=== PATIENT | female | born 2000 | race Caucasian/White ===

== ENCOUNTER 2024-10-16 22:27 | Emergency (ER) | payer OTHER ==
[~2024-10-16] VITALS: Ht 162.6 cm; Wt 59.0 kg
[2024-10-16 22:55] VITALS: BP 125/76
[2024-10-16] MEDS ORDERED: ONDANSETRON 4 MG/2 ML VIAL ONE (23:30)
[2024-10-16] MEDS ORDERED: HYDROMORPHONE 1 MG/1 ML DISP.SYRIN ONE (23:30)
[2024-10-16] MEDS: HYDROMORPHONE 1 MG/1 ML DISP.SYRIN IV ONE (23:36)
[2024-10-16] MEDS: ONDANSETRON 4 MG/2 ML VIAL IV ONE (23:37)
[2024-10-17 00:01] LABS: *BILIRUBIN,URIN NEGATIVE (NEGATIVE); *BLOOD, URINE 2+ (NEGATIVE); *CLARITY,URINE CLEAR (CLEAR); *COLOR,URINE YELLOW (YELLOW); *KETONES,URINE NEGATIVE (NEGATIVE); *PROTEIN,URINE 3+ (NEGATIVE); *UROBILINOGEN,URINE 0.2 E.U./dl (NORMAL); LEUKOCYTE ESTERASE ,URINE 3+ (NEGATIVE); NITRITE, URINE POSITIVE (NEGATIVE); UGLUCOSE NEGATIVE (NEGATIVE)
[2024-10-17 00:03] LABS: *URINE HCG, QUAL NEGATIVE (NEGATIVE)
[2024-10-17 00:17] LABS: SQUAMOUS EPITHELIAL CELL,UR FEW /HPF (NONE SEEN)
[2024-10-17] MEDS ORDERED: CEFTRIAXONE /D5W 50ML IVPB **ER PYXIS IV ONE (01:48)
[2024-10-17] MEDS ORDERED: HYDROMORPHONE 1 MG/1 ML DISP.SYRIN ONE (01:49)
[2024-10-17] MEDS ORDERED: ONDANSETRON 4 MG/2 ML VIAL ONE (01:49)
[2024-10-17] MEDS: CEFTRIAXONE 1 G in IV DEXTROSE 5% 50 ML IV ONE (01:53)
[2024-10-17] MEDS: IV NORMAL SALINE 1000 ML BAG IV ONE (01:53)
[2024-10-17] MEDS: ONDANSETRON 4 MG/2 ML VIAL IV ONE (01:53)
[2024-10-17] MEDS: HYDROMORPHONE 1 MG/1 ML DISP.SYRIN IV ONE (01:53)
[2024-10-17 01:58] LABS: PLATELET COUNT (AUTO) 271 K/uL (179-408); RED BLOOD CELL COUNT(AUTO) 4.45 MIL/uL (3.63-4.92); RED CELL DISTRIBUTION WIDTH 12.2 % (12.3-17.7); WHITE BLOOD COUNT (AUTO) 11.6 K/uL (3.8-11.8)
[2024-10-17] MEDS ORDERED: DULO20CA PO (02:04)
[2024-10-17] MEDS ORDERED: CICL6.1H IH (02:04)
[2024-10-17 02:08] LABS: ASPARTATE AMINOTRANSFERASE 10.0 U/L (15-37); CREATININE 0.6 mg/dL (0.6-1.3); SODIUM SERUM 136.0 mmol/L (136-145); TOTAL PROTEIN, SERUM 7.4 g/dL (6.4-8.2); UREA NITROGEN, BLOOD 9.0 mg/dL (7-18)
[2024-10-17] MEDS ORDERED: CEPH500C2 PO (04:33)
[2024-10-17] MEDS ORDERED: IBUP-1957 PO (04:33)
[2024-10-17 05:17] VITALS: BP 125/76; TEMP 98; O2SAT 97
== END 2024-10-17 05:18 | disposition home or self-care (01) ==
LOC: ER 23:04
DX: N10 Acute pyelonephritis (principal); N13.30 Unspecified hydronephrosis; J45.909 Unspecified asthma, uncomplicated; R11.0 Nausea; Z79.51 Long term (current) use of inhaled steroids; Z79.899 Other long term (current) drug therapy; Z88.0 Allergy status to penicillin; Z88.1 Allergy status to other antibiotic agents; Z88.8 Allergy status to other drugs, medicaments and biological substances
CPT/HCPCS: 99285; 74176; 96375; 81001; 84703; 87186; 87086; 87077; 96365; 96361; 80076; 80048; 85025; 84145; 85730; 87040 ×2; 36415; 96376; 83605; J2405 ×2; J1171 ×2; J0696; J7040; A4606; A4663